=== PATIENT | male | born 1955 | race Caucasian/White ===

== ENCOUNTER → 2019-04-11 10:39 | Day surgery (SDC) | payer OTHER ==
[~2019-04-11 10:39] MED LIST: Buffered Lidocaine 1% SYRIN* 1 ML/SYRINGE INTRADERM ONE; Bupivacaine 0.25% SDV PF* 10 ML VIAL INJ ONE; HYDROcodone/ACETAMIN 5-325 MG* 1 TAB ONE; Midazolam* 1 MG/ML 2 ML VIAL (2 MG) ONE; Naloxone* 0.4 MG/ML 1 ML VIAL IV PRN; ceFAZolin 1 GM ADVAN(*) 1 GM ADDV.VIAL IVPB ONE; ceFAZolin 2 GM in NS PREMIX(*) 2 GM/100 ML BAG IVPB ONE; fentaNYL* 50 MCG/ML 2 ML VIAL (100 MCG VIAL) ONE
[2019-04-11 15:22] VITALS: BP 154/77
--- NOTE | 2019-04-11 21:47 | OP ---
DATE OF OPERATION: 04/11/19 [facility] DATE OF : 51 SURGEON: Rios Olivera M.D. LABORER RAGS: RADHA Ashton. ANESTHESIOLOGIST: Dr. Busch. ANESTHESIA: Local MAC. PRE-OP DIAGNOSIS: Left thumb displaced intra-articular proximal phalanx base fracture. POST-OP DIAGNOSIS: Left thumb displaced intra-articular proximal phalanx base fracture. OPERATIVE PROCEDURE: Open reduction and internal fixation of the left thumb intra-articular proximal phalanx base fracture. INDICATIONS: Rios has the displaced fracture. Clinically, it is quite deformed. He saw me in the clinic on Thursday. He was sent over by from another orthopedic surgeon. I told him I think he could do better if we align the thumb a bit better. He has diabetes. We talked about the risks of infection. I told him I would burry the pins, he may have to come back to the operating room to remove the pins when the time comes. ESTIMATED BLOOD LOSS: 1 mL. COMPLICATIONS: None. FINDINGS: See above and below. DESCRIPTION OF PROCEDURE: Mr. Carcamo was seen in the preoperative holding area. The correct site, side and procedure were identified. We came back to the operating room where the arm was prepped and draped in the usual fashion, and time- out was performed. The patient was positioned supine with the use of a hand table. We brought in the mini C-arm. I confirmed that I cannot adequately close or reduce the fracture. I made an incision over the dorsal ulnar aspect of the thumb. I dissected down and then introduced a freer elevator into the fracture fragments and mobilized all the fracture fragments. There was obvious reasonable secondary congruence at the joint line. I went ahead and aligned the fracture and then I took a K-wire and started distal radial and introduced into the distal fragment down to the fracture line. I reduced the fracture and had my assistant floor covering printer pass the K-wire exit out the proximal ulnar cortex. I then took a second K-wire and started distal ulna and in like manner, advanced it down holding the reduction while we exited out the proximal radial. It provided a nice cross K-wire configuration. Bone felt very stable at this point. The alignment was held very nicely. It was confirmed on mini C-arm fluoroscopy. I clipped the pins below the skin. The incision was closed with 4-0 nylon suture. I had already performed the digital block prior to the beginning of the procedure with 0.25% plain Marcaine and 2% plain lidocaine. After the wound was closed, the wound was dressed with Xeroform, 4x4s, sterile Webril, and a thumb spica plaster splint was applied all the way up to the thumb tip. He was taken to the recovery room in stable condition. [id number]/CPS #: [id number] MTDD
== END | disposition home or self-care (01) ==
LOC: OR 10:39
PROVIDERS: ATTEND Orthopaedic Surgery Hand Surgery
DX: S62.512A Displaced fracture of proximal phalanx of left thumb, initial encounter for closed fracture (principal); Z88.5 Allergy status to narcotic agent; E11.9 Type 2 diabetes mellitus without complications; I10 Essential (primary) hypertension; I48.91 Unspecified atrial fibrillation; V49.9XXA Car occupant (driver) (passenger) injured in unspecified traffic accident, initial encounter; X58.XXXA Exposure to other specified factors, initial encounter
CPT/HCPCS: 76000; C1776; J0690; J2250; J3010; J3490